=== PATIENT | female | born 1935 | race Caucasian/White ===

== ENCOUNTER 2016-12-19 11:56 | Inpatient (IN) | payer MEDICARE ==
--- NOTE | 2016-12-19 13:25 | CR ---
Chest 1V Frontal HISTORY: Shortness of breath. COMPARISON: Chest x-ray 07/13/2006 FINDINGS: Right-sided pacemaker. Moderate cardiomegaly. Prior median sternotomy. Borderline congesti ve change. Lordotic projection. No dense infiltrate. Impression: [place] 1. Cardiomegaly and borderline congestive change. No dense focal infiltrate.
--- NOTE | 2016-12-19 13:27 | EDM.PDOC ---
ED HPI GENERAL MEDICAL PROBLEM - General Chief Complaint: Abdominal Pain Stated Complaint: SHORTNESS OF BREATH,STOMACH PAIN Time Seen by Provider: 12/19/16 12:30 Source of Information: Reports: Patient, Family History Limitations: Reports: No Limitations - History of Present Illness Onset: Gradual Duration: Day(s): Location: Reports: Chest, Abdomen Associated Symptoms: Reports: Shortness of Breath - Related Data Allergies Allergy/AdvReac Type Severity Reaction Status Date / Time vancomycin Allergy Rash Verified 06/28/14 16:36 Home Meds: Home Meds Acetaminophen 650 mg PO Q6H PRN 06/28/14 [History] Aspirin [Halfprin] 81 mg PO DAILY 06/28/14 [History] Bumetanide [Bumex] 1 mg PO DAILY 06/28/14 [History] Calcium Carbonate/Vitamin D3 [Calcium Carbonate/Vitamin D 1250 MG-200 Unit] 1 tab PO BID 06/28/14 [History] Carvedilol [Coreg] 25 mg PO BID 06/28/14 [History] Lisinopril 5 mg PO DAILY 06/28/14 [History] Magnesium Oxide 400 mg PO DAILY 06/28/14 [History] Nitroglycerin [Nitrostat] 0.4 mg SL ASDIRECTED PRN 06/28/14 [History] Omeprazole [Prilosec] 20 mg PO DAILY 06/28/14 [History] Spironolactone [Aldactone] 25 mg PO DAILY 06/28/14 [History] Warfarin [Coumadin] 3 mg PO WE 06/28/14 [History] Warfarin [Coumadin] 4 mg PO MOTUTHFR 06/28/14 [History] atorvaSTATin [Lipitor] 80 mg PO BEDTIME 06/28/14 [History] Past Medical History Cardiovascular History: Reports: Heart Failure Respiratory History: Reports: SOB, Other (See Below) Other Respiratory History: pt does not know why wearing oxygen. wears at home for last 3 years Genitourinary History: Reports: Urinary Incontinence [employer] History: Reports: Musculoskeletal History: Reports: Arthritis Endocrine/Metabolic History: Reports: Diabetes, Type II - Infectious Disease History Infectious Disease History: Reports: Chicken Pox, Measles, Mumps - Past Surgical History Cardiovascular Surgical History: Reports: Carotid Stents, Valve Replacement Social & Family History - Family History Family Medical History: Noncontributory Cardiac: Reports: CAD, Heart Failure Respiratory: Reports: COPD Endocrine/Metabolic: Reports: Diabetes, type II - Tobacco Use Smoking Status *Q: Former Smoker Years of Tobacco use: 30 Used Tobacco, but Quit: No Month Tobacco Last Used: 1997 Second Hand Smoke Exposure: No - Caffeine Use Caffeine Use: Reports: Tea - Alcohol Use Days Per Week of Alcohol Use: 2 Number of Drinks Per Day: 3 Total Drinks Per Week: 6 - Recreational Drug Use Recreational Drug Use: No ED ROS GENERAL - Review of Systems Review Of Systems: See Below Constitutional: Reports: No Symptoms HEENT: Reports: No Symptoms Respiratory: Reports: Shortness of Breath, Wheezing Cardiovascular: Reports: Dyspnea on Exertion, Orthopnea Endocrine: Reports: No Symptoms GI/Abdominal: Reports: Abdominal Pain, Distension : Reports: No Symptoms Musculoskeletal: Reports: No Symptoms Skin: Reports: No Symptoms Neurological: Reports: No Symptoms ED EXAM, GI/ABD - Physical Exam Exam: See Below Text/Narrative:: pt arrived with sob and leg swelling. Her abdoman is very distended. Exam Limited By: No Limitations General Appearance: Alert, Moderate Distress Ears: Normal TMs Nose: Normal Inspection Throat/Mouth: Normal Inspection Head: Atraumatic Neck: Other (neck veins distended. ) Respiratory/Chest: Decreased Breath Sounds, Rales Cardiovascular: Irregularly Irregular GI/Abdominal Exam: Distended, Other ( abdoman is very tight. ) (Female) Exam: Deferred Rectal (Female) Exam: Deferred Back Exam: Normal Inspection Extremities: Pedal Edema, Other ( plus 3) Neurological: Alert, Oriented, Normal Cognition Psychiatric: Normal Affect Course - Vital Signs Last Recorded V/S: Last Vital Signs Temp 35.5 C 12/19/16 12:42 Pulse 79 12/19/16 12:42 Resp 18 12/19/16 12:42 BP 107/71 12/19/16 12:42 Pulse Ox 88 L 12/19/16 12:42 - Orders/Labs/Meds Orders: Active Orders 24 hr Category Date Time Status EKG Documentation Completion [RC] ASDIRECTED Care 12/19/16 12:40 Active UA W/MICROSCOPIC [URIN] Urgent Lab 12/19/16 12:40 Uncollected EKG 12 Lead [EK] Routine Ther 12/19/16 12:40 Ordered Labs: Laboratory Tests 07/21/17 07/21/17 07/21/17 Range/Units 12:40 12:40 12:40 WBC 4.7 (4.5-11.0) K/uL RBC 4.17 (3.30-5.50) M/uL Hgb 10.0 L (12.0-15.0) g/dL Hct 32.2 L (36.0-48.0) % MCV 77 L (80-98) fL MCH 24 L (27-31) pg MCHC 31 L (32-36) % Plt Count 97 L (150-400) K/uL Neut % (Auto) 74 H (36-66) % Lymph % (Auto) 10 L (24-44) % [place] % (Auto) 15 H (2-6) % Eos % (Auto) 0 L (2-4) % Baso % (Auto) 0 (0-1) % PT 50.8 H (9.5-12.0) sec INR 4.46 H* D (0.80-1.20) Puncture Site ABG pH (7.350-7.450) ABG pCO2 (35.0-42.0) mmHg ABG pO2 (75.0-100.0) mmHg ABG HCO3 (22.0-26.0) mmol/L ABG Total CO2 (21.0-25.0) mmol/L ABG O2 Saturation (95.0-98.0) % ABG O2 Content (15.0-23.0) %vol ABG Base Excess mm/L ABG Hemoglobin (12.0-16.0) g/dL ABG Oxyhemoglobin % ABG Carboxyhemoglobin (0.0-1.6) % ABG Methemoglobin % Alexis Test O2 Delivery Device Oxygen Flow Rate L Sodium 133 L (140-148) mmol/L Potassium 4.3 (3.6-5.2) mmol/L Chloride 96 L (100-108) mmol/L Carbon Dioxide 28 (21-32) mmol/L Anion Gap 13.3 (5.0-14.0) mmol/L BUN 55 H D (7-18) mg/dL Creatinine 3.8 H* D (0.6-1.0) mg/dL Est Cr Clr Drug Dosing 9.49 mL/min Estimated GFR (MDRD) 11 L (>60) Glucose 80 (74-106) mg/dL Calcium 8.2 L (8.5-10.1) mg/dL Total Bilirubin 1.7 H (0.2-1.0) mg/dL AST 23 (15-37) U/L ALT 14 (12-78) U/L Alkaline Phosphatase 92 (46-116) U/L C-Reactive Protein (0.0-0.3) mg/dL Fsw-M-Crfaldgabjf Pept 95466 H (5-450) pg/mL Total Protein 6.9 (6.4-8.2) g/dL Albumin 3.0 L (3.4-5.0) g/dL Globulin 3.9 H (2.3-3.5) g/dL Albumin/Globulin Ratio 0.8 L (1.2-2.2) 12/19/16 12/19/16 Range/Units 14:10 14:26 WBC (4.5-11.0) K/uL RBC (3.30-5.50) M/uL Hgb (12.0-15.0) g/dL Hct (36.0-48.0) % MCV (80-98) fL MCH (27-31) pg MCHC (32-36) % Plt Count (150-400) K/uL Neut % (Auto) (36-66) % Lymph % (Auto) (24-44) % [place] % (Auto) (2-6) % Eos % (Auto) (2-4) % Baso % (Auto) (0-1) % PT (9.5-12.0) sec INR (0.80-1.20) Puncture Site Rt.brachial ABG pH 7.418 (7.350-7.450) ABG pCO2 35.5 (35.0-42.0) mmHg ABG pO2 102.0 H (75.0-100.0) mmHg ABG HCO3 22.5 (22.0-26.0) mmol/L ABG Total CO2 20.9 L (21.0-25.0) mmol/L ABG O2 Saturation 97.6 (95.0-98.0) % ABG O2 Content 13.6 L (15.0-23.0) %vol ABG Base Excess -1.1 mm/L ABG Hemoglobin 10.0 L (12.0-16.0) g/dL ABG Oxyhemoglobin 95.8 % ABG Carboxyhemoglobin 1.3 (0.0-1.6) % ABG Methemoglobin 0.5 % Alexis Test TNP O2 Delivery Device Room air Oxygen Flow Rate 2 L Sodium (140-148) mmol/L Potassium (3.6-5.2) mmol/L Chloride (100-108) mmol/L Carbon Dioxide (21-32) mmol/L Anion Gap (5.0-14.0) mmol/L BUN (7-18) mg/dL Creatinine (0.6-1.0) mg/dL Est Cr Clr Drug Dosing mL/min Estimated GFR (MDRD) (>60) Glucose (74-106) mg/dL Calcium (8.5-10.1) mg/dL Total Bilirubin (0.2-1.0) mg/dL AST (15-37) U/L ALT (12-78) U/L Alkaline Phosphatase (46-116) U/L C-Reactive Protein 0.17 (0.0-0.3) mg/dL Jox-L-Dgntgkpfiyu Pept (5-450) pg/mL Total Protein (6.4-8.2) g/dL Albumin (3.4-5.0) g/dL Globulin (2.3-3.5) g/dL Albumin/Globulin Ratio (1.2-2.2) - Re-Assessments/Exams Free Text/Narrative Re-Assessment/Exam: 12/19/16 15:09 chest xray shows cardiomegly , chf, Her bnp is high. Her cretnine is 3.8. A cat scn of the abdoman shows acetes and third spacing. Departure - Departure Time of Disposition: 15:10 Disposition: Admitted As Inpatient 68 Condition: Fair Clinical Impression: CHF (congestive heart failure), Ascites, Renal insufficiency - Discharge Information Forms: ED Department Discharge Care Plan Goals: admit to Dr penn - My Orders Last 24 Hours: My Active Orders 12/19/16 12:40 EKG Documentation Completion [RC] ASDIRECTED UA W/MICROSCOPIC [URIN] Urgent EKG 12 Lead [EK] Routine - Assessment/Plan Last 24 Hours: My Active Orders 12/19/16 12:40 EKG Documentation Completion [RC] ASDIRECTED UA W/MICROSCOPIC [URIN] Urgent EKG 12 Lead [EK] Routine
--- NOTE | 2016-12-19 14:40 | CT ---
Abdomen Pelvis wo Cont HISTORY: Distended abdomen. Dose: Total DLP 799. COMPARISON: None FINDINGS: Moderate amount of ascites in the abdomen and pelvis. Moderate amount of subcutaneous severo a. Moderate enlarged heart. Prior cholecystectomy. The liver, spleen, pancreas, adrenal glands and abdominal aorta appear normal. Mild atrophy of the k idneys no hydronephrosis. There is some vascular calcifications in both kidneys. The remainder of the pelvis is unremarkable. Impression: 1. Moderate amount of ascites and subcutaneous edema. In correlation with enlarged heart this may be on the basis of heart failure. As well the inferior vena cava is slightly distended suggesting righ t heart failure.
--- NOTE | 2016-12-19 15:19 | PCM.HP ---
H&P History of Present Illness - General Date of Service: 12/19/16 Admit Problem/Dx: Admission Diagnosis/Problem Admission Diagnosis/Problem CHF, Congestive heart failure Source of Information: Patient, Family, Provider History Limitations: Reports: No Limitations - History of Present Illness Initial Comments - Free Text/Narative: Gail presented to the emergency room at the [facility] in [place]. She presented there with one week of progressive shortness of breath, lower extremity edema as well as increasing abdominal distention. She has been more short of breath with activity than usual but has not had any orthopnea. No difficulties with chest pain. She does report some mild intermittent crampy abdominal pain that comes and goes. This has not been consistent. No obvious trigger. The pain goes away without any sort of intervention. She has had loose stools for the past few days but they're better today after a dose of Imodium last night. No recent antibiotics. She has not been keeping track of her weight for some time. She has been watching her salt but not watching her diet particularly. No recent illnesses or obvious cause for her worsening of symptoms over the past week. Workup in the emergency room revealed evidence for congestive heart failure including small bilateral effusions, clinical examination consistent with this, BNP of nearly 16,000. She also has acute on chronic renal failure with a creatinine of 3.8. She will be admitted for management of acute systolic congestive heart failure. - Related Data Allergies/Adverse Reactions: Allergies Allergy/AdvReac Type Severity Reaction Status Date / Time vancomycin Allergy Rash Verified 06/28/14 16:36 Home Medications: Home Meds Acetaminophen 650 mg PO Q6H PRN 06/28/14 [History] Aspirin [Halfprin] 81 mg PO DAILY 06/28/14 [History] Bumetanide [Bumex] 1 mg PO DAILY 06/28/14 [History] Calcium Carbonate/Vitamin D3 [Calcium Carbonate/Vitamin D 1250 MG-200 Unit] 1 tab PO BID 06/28/14 [History] Carvedilol [Coreg] 25 mg PO BID 06/28/14 [History] Lisinopril 5 mg PO DAILY 06/28/14 [History] Magnesium Oxide 400 mg PO DAILY 06/28/14 [History] Nitroglycerin [Nitrostat] 0.4 mg SL ASDIRECTED PRN 06/28/14 [History] Omeprazole [Prilosec] 20 mg PO DAILY 06/28/14 [History] Spironolactone [Aldactone] 25 mg PO DAILY 06/28/14 [History] Warfarin [Coumadin] 2 mg PO MOTUTHFR 06/28/14 [History] Warfarin [Coumadin] 3 mg PO ASDIRECTED 06/28/14 [History] atorvaSTATin [Lipitor] 80 mg PO BEDTIME 06/28/14 [History] Past Medical History Cardiovascular History: Reports: Heart Failure Respiratory History: Reports: SOB, Other (See Below) Other Respiratory History: pt does not know why wearing oxygen. 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: Musculoskeletal History: Reports: Arthritis Endocrine/Metabolic History: Reports: Diabetes, Type II - Infectious Disease History Infectious Disease History: Reports: Chicken Pox, Measles, Mumps - Past Surgical History Cardiovascular Surgical History: Reports: Carotid Stents, Valve Replacement Social & Family History - Family History Family Medical History: Noncontributory Cardiac: Reports: CAD, Heart Failure Respiratory: Reports: COPD Endocrine/Metabolic: Reports: Diabetes, type II - Tobacco Use Smoking Status *Q: Former Smoker Years of Tobacco use: 30 Used Tobacco, but Quit: No Month Tobacco Last Used: 1997 Second Hand Smoke Exposure: No - Caffeine Use Caffeine Use: Reports: Tea - Alcohol Use Days Per Week of Alcohol Use: 2 Number of Drinks Per Day: 3 Total Drinks Per Week: 6 - Recreational Drug Use Recreational Drug Use: No H&P Review of Systems - Review of Systems: Review Of Systems: See Below Free Text/Narrative: A complete 12 point review of systems was obtained. Pertinent positives and negatives are noted in the history of present illness. All other systems were reviewed and were negative except as noted. Exam - Exam Exam: See Below - Vital Signs Vital Signs: Last Vital Signs Temp 35.5 C 12/19/16 12:42 Pulse 79 12/19/16 12:42 Resp 18 12/19/16 12:42 BP 107/71 12/19/16 12:42 Pulse Ox 88 L 12/19/16 12:42 Weight: 74.843 kg - Exam Quality Assessment: Supplemental Oxygen General: Alert, Oriented, Cooperative. No: Mild Distress HEENT: Conjunctiva Clear, Normal Nasal Septum. No: Mucosa Moist & [place] (dry), Scleral Icterus Neck: Supple, Trachea Midline, JVD (To the angle of the jaw at 60). No: Lymphadenopathy, Thyromegaly Lungs: Normal Respiratory Effort, Decreased Breath Sounds (Left lung base), Rales (A few right lung base). No: Wheezing Cardiovascular: Regular Rate, Irregular Rhythm, Systolic Murmur (Throughout, best at left lower sternal border and apex). No: Diastolic Murmur GI/Abdominal Exam: Normal Bowel Sounds, Soft, Distended, Tender (Mild diffuse tenderness) Extremities: Other (Pitting edema of the lower extremities to the knee and dependent areas of the lower extremities all the way to the waist). No: Increased Warmth, Mottled Peripheral Pulses: 2+: Dorsalis Pedis (L), Dorsalis Pedis (R) Skin: Warm, Dry, Intact Neuro Extensive - Mental Status: Alert, Oriented x3, Nl Response to Commands Neuro Extensive - Motor, Sensory, Reflexes: CN II-XII Intact. No: Dysarthria, Abnormal Motor, Tremor Psychiatric: Alert, Normal Affect - Patient Data Lab Results Last 24 hrs: Laboratory Results - last 24 hr 12/19/16 12/19/16 12/19/16 Range/Units 12:40 12:40 12:40 WBC 4.7 (4.5-11.0) K/uL RBC 4.17 (3.30-5.50) M/uL Hgb 10.0 L (12.0-15.0) g/dL Hct 32.2 L (36.0-48.0) % MCV 77 L (80-98) fL MCH 24 L (27-31) pg MCHC 31 L (32-36) % Plt Count 97 L (150-400) K/uL Neut % (Auto) 74 H (36-66) % Lymph % (Auto) 10 L (24-44) % [place] % (Auto) 15 H (2-6) % Eos % (Auto) 0 L (2-4) % Baso % (Auto) 0 (0-1) % PT 50.8 H (9.5-12.0) sec INR 4.46 H* D (0.80-1.20) Puncture Site ABG pH (7.350-7.450) ABG pCO2 (35.0-42.0) mmHg ABG pO2 (75.0-100.0) mmHg ABG HCO3 (22.0-26.0) mmol/L ABG Total CO2 (21.0-25.0) mmol/L ABG O2 Saturation (95.0-98.0) % ABG O2 Content (15.0-23.0) %vol ABG Base Excess mm/L ABG Hemoglobin (12.0-16.0) g/dL ABG Oxyhemoglobin % ABG Carboxyhemoglobin (0.0-1.6) % ABG Methemoglobin % Alexis Test O2 Delivery Device Oxygen Flow Rate L Sodium 133 L (140-148) mmol/L Potassium 4.3 (3.6-5.2) mmol/L Chloride 96 L (100-108) mmol/L Carbon Dioxide 28 (21-32) mmol/L Anion Gap 13.3 (5.0-14.0) mmol/L BUN 55 H D (7-18) mg/dL Creatinine 3.8 H* D (0.6-1.0) mg/dL Est Cr Clr Drug Dosing 9.49 mL/min Estimated GFR (MDRD) 11 L (>60) Glucose 80 (74-106) mg/dL Calcium 8.2 L (8.5-10.1) mg/dL Total Bilirubin 1.7 H (0.2-1.0) mg/dL AST 23 (15-37) U/L ALT 14 (12-78) U/L Alkaline Phosphatase 92 (46-116) U/L C-Reactive Protein (0.0-0.3) mg/dL Hrc-M-Dtaxwfifuzw Pept 70873 H (5-450) pg/mL Total Protein 6.9 (6.4-8.2) g/dL Albumin 3.0 L (3.4-5.0) g/dL Globulin 3.9 H (2.3-3.5) g/dL Albumin/Globulin Ratio 0.8 L (1.2-2.2) 12/19/16 12/19/16 Range/Units 14:10 14:26 WBC (4.5-11.0) K/uL RBC (3.30-5.50) M/uL Hgb (12.0-15.0) g/dL Hct (36.0-48.0) % MCV (80-98) fL MCH (27-31) pg MCHC (32-36) % Plt Count (150-400) K/uL Neut % (Auto) (36-66) % Lymph % (Auto) (24-44) % [place] % (Auto) (2-6) % Eos % (Auto) (2-4) % Baso % (Auto) (0-1) % PT (9.5-12.0) sec INR (0.80-1.20) Puncture Site Rt.brachial ABG pH 7.418 (7.350-7.450) ABG pCO2 35.5 (35.0-42.0) mmHg ABG pO2 102.0 H (75.0-100.0) mmHg ABG HCO3 22.5 (22.0-26.0) mmol/L ABG Total CO2 20.9 L (21.0-25.0) mmol/L ABG O2 Saturation 97.6 (95.0-98.0) % ABG O2 Content 13.6 L (15.0-23.0) %vol ABG Base Excess -1.1 mm/L ABG Hemoglobin 10.0 L (12.0-16.0) g/dL ABG Oxyhemoglobin 95.8 % ABG Carboxyhemoglobin 1.3 (0.0-1.6) % ABG Methemoglobin 0.5 % Alexis Test TNP O2 Delivery Device Room air Oxygen Flow Rate 2 L Sodium (140-148) mmol/L Potassium (3.6-5.2) mmol/L Chloride (100-108) mmol/L Carbon Dioxide (21-32) mmol/L Anion Gap (5.0-14.0) mmol/L BUN (7-18) mg/dL Creatinine (0.6-1.0) mg/dL Est Cr Clr Drug Dosing mL/min Estimated GFR (MDRD) (>60) Glucose (74-106) mg/dL Calcium (8.5-10.1) mg/dL Total Bilirubin (0.2-1.0) mg/dL AST (15-37) U/L ALT (12-78) U/L Alkaline Phosphatase (46-116) U/L C-Reactive Protein 0.17 (0.0-0.3) mg/dL Hkw-R-Ebepdcgxhpt Pept (5-450) pg/mL Total Protein (6.4-8.2) g/dL Albumin (3.4-5.0) g/dL Globulin (2.3-3.5) g/dL Albumin/Globulin Ratio (1.2-2.2) Result Diagrams: 12/19/16 12:40 12/19/16 12:40 Imaging Impressions Last 24 hrs: Chest x-ray - images personally reviewed - there is significant cardiomegaly and small bilateral pleural effusions, left slightly greater than right. There is mild cephalization of the vasculature. No definite mass or infiltrate identified. She does have a single chamber pacemaker in place. CT scan of the abdomen and pelvis - there is moderate free fluid/ascites in the abdomen as well as anasarca. No acute pathology. EKG INTERPRETATION EKG Date: 12/19/16 Rhythm: A-Fib Rate (Beats/Min): 74 [place]: RAD-Right [place] Deviation P-Wave: Variable QRS: Normal ST-T: Normal EKG Interpretation Comments: Nonspecific T-wave flattening throughout *Q Meaningful Use (ADM) - VTE *Q VTE Criteria *Q: VTE Pharmacological Contraindications *Q: High INR Value - VTE Risk Assess *Q Each Risk Factor Represents 1 Point: Swollen Legs, Current, Obesity (BMI greater than 30), Congestive Heart Failure, Less than 1 Month Total Score 1 Point Risk Factors: 3 Each Risk Factor Represents 2 Points: None Total Score 2 Point Risk Factors: 0 Each Risk Factor Represents 3 Points: Age 75 Years or Greater Total Score 3 Point Risk Factors: 3 Each Risk Factor Represents 5 Points: None Total Score 5 Point Risk Factors: 0 Venous Thromboembolism Risk Factor Score *Q: 6 - Stroke *Q Stroke Criteria *Q: - AMI *Q AMI Criteria *Q: - Problem List (1) Acute systolic CHF (congestive heart failure), NYHA class 3 SNOMED Code(s): 128852587, 284729134, 896741153 ICD Code: I50.21 - ACUTE SYSTOLIC (CONGESTIVE) HEART FAILURE Status: Acute Current Visit: Yes (2) Acute on chronic renal failure SNOMED Code(s): 756877237 ICD Code: N17.9 - ACUTE KIDNEY FAILURE, UNSPECIFIED; N18.9 - CHRONIC KIDNEY DISEASE, UNSPECIFIED Status: Acute Current Visit: Yes Qualifiers: Acute renal failure type: unspecified Chronic kidney disease stage: stage 4 (severe) Qualified Code(s): N17.9 - Acute kidney failure, unspecified; N18.4 - Chronic kidney disease, stage 4 (severe) (3) Anemia due to chronic kidney disease SNOMED Code(s): 944011075 ICD Code: N18.9 - CHRONIC KIDNEY DISEASE, UNSPECIFIED; D63.1 - ANEMIA IN CHRONIC KIDNEY DISEASE Status: Chronic Current Visit: Yes Problem List Initiated/Reviewed/Updated: Yes Orders Last 24hrs: Active Orders 24 hr Category Date Time Status Patient Status Manage Transfer [TRANSFER] Routine ADT 12/19/16 15:10 Ordered EKG Documentation Completion [RC] ASDIRECTED Care 12/19/16 12:40 Active Insert Harper Catheter [Insert Urinary Catheter] [OM.PC] Care 12/19/16 15:15 Ordered Q24H Urinary Catheter Assessment [RC] ASDIRECTED Care 12/19/16 15:09 Active UA W/MICROSCOPIC [URIN] Urgent Lab 12/19/16 12:40 Uncollected Bumetanide [Bumex] Med 12/19/16 15:20 Once 2 mg IVPUSH ONETIME ONE Resuscitation Status Routine Resus Stat 12/19/16 15:12 Ordered EKG 12 Lead [EK] Routine Ther 12/19/16 12:40 Ordered Medication Orders Bumetanide (Bumex) 2 mg IVPUSH ONETIME ONE Stop: 12/19/16 15:21 Assessment/Plan Comment:: Assessment and plan - Acute systolic congestive heart failure, NYHA class III - likely subacute on chronic. She has a known reduction in her ejection fraction with most recent measurement 25-30%. She also has severe tricuspid regurgitation, moderate regurgitation around her mechanical aortic valve and moderate mitral regurgitation. Patient has not been monitoring weight. No obvious trigger for exacerbation. Weight is up about 25 pounds from her dry weight. Has had recent diarrhea and abdominal distention that is probably related to edema of the intestines. Not safe for outpatient management with symptoms rising after even minimal activity, acute on chronic kidney disease and the significant weight gain. There is no evidence for acute coronary syndrome at this time. BNP is significantly elevated. -Insert Harper catheter for strict intake and output monitoring -Bumetanide 2 mg every 8 hours -Cardiac monitoring -Continue beta jim, AMARJIT inhibitor -Supplemental oxygen -Repeat echocardiogram when available -Strict intake and output monitoring Acute on chronic kidney injury - creatinine up to 3.8 with a baseline of 2.5. Suspect congestive heart failure as the contribute factor to the worsening of the kidney function and I would anticipate that with diuresis the kidney function should get better. She does continue to make urine. -Diuresis as above -Labs in the morning Chronic atrial fibrillation - acceptable rate control at this time. She is chronically anticoagulated and INR slightly supratherapeutic. -Continue beta jim -Hold warfarin -INR goal is 2.5-3.5 with a mechanical aortic valve Anemia of chronic disease - Hemoglobin is safe level at this time. No indication for transfusion. Plan to monitor labs daily. Maintenance issues - - DVT prophylaxis - warfarin - GI prophylaxis - PPI - Nutrition - low sodium diet - Harper catheter - placed for strict intake and output monitoring, will be reassessed daily CODE STATUS - patient wishes to be full code Admission justification - This patient will be admitted for inpatient services and is medically appropriate meeting medical necessity for inpatient admission as outlined in my documentation. I reasonably expect the patient will require inpatient services that span a period time over 2 midnights. I reasonably expect this patient to be discharged or transferred within 96 hours [facility]. Disposition - anticipate discharge home after the hospital stay Primary care physician - Dr Cherelle Jameson M.D.
[2016-12-19] MEDS ORDERED: Bumetanide 1 MG/4 ML MDV IVPUSH ONE (15:20)
[2016-12-19] MEDS ORDERED: Acetaminophen/HYDROcodone 325-5 MG Tab PO PRN (17:09)
[2016-12-19] MEDS ORDERED: Ondansetron 4 MG Tab.DIS PO PRN (17:09)
[2016-12-19] MEDS ORDERED: Bumetanide 1 MG/4 ML MDV ONE (18:30)
[2016-12-19] MEDS: Carvedilol 25 MG Tab PO SCH (20:37)
[2016-12-19] MEDS: atorvaSTATin 20 MG Tab PO SCH (20:40)
[2016-12-19] MEDS ORDERED: Lisinopril 5 MG Tab PO SCH (21:00)
[2016-12-20] MEDS: Acetaminophen 325 MG Tab PO PRN ×2 (00:07→23:24)
[2016-12-20] MEDS ORDERED: Bumetanide 2.5 MG/10 ML MDV IVPUSH SCH (02:00)
[2016-12-20] MEDS ORDERED: Bumetanide 2.5 MG/10 ML MDV IVPUSH STA (03:37)
[2016-12-20] MEDS: Bumetanide 2.5 MG/10 ML MDV IVPUSH SCH ×2 (03:47→11:33)
[2016-12-20] MEDS ORDERED: Phytonadione ORAL 5mg/5ml Soln Simple Syrup U/D PO ONE (06:17)
[2016-12-20] MEDS: Pantoprazole 40 MG Tab.CR PO SCH (06:42)
[2016-12-20] MEDS: Magnesium Oxide 400 MG Tab PO SCH (09:20)
[2016-12-20] MEDS: Spironolactone 25 MG Tab PO SCH (09:20)
[2016-12-20] MEDS: Aspirin 81 MG Tab.EC PO SCH (09:20)
--- NOTE | 2016-12-20 10:52 | PCM.PN ---
- General Info Date of Service: 12/20/16 Functional Status: Reports: Pain Controlled, Tolerating Diet - Review of Systems General: Reports: Weakness Pulmonary: Reports: Shortness of Breath Systems Review Comment:: No acute events overnight but patient has not responded well to attempts at diuresis with IV push bumetanide. Blood pressures have remained on the low side and her carvedilol and lisinopril have been held. Clinically she feels better today and feels less short of breath. She does not report orthopnea. She has not had any fevers. Abdominal distention seems a little bit better today. - Patient Data Vitals - most recent: Last Vital Signs Temp 35.6 C 12/20/16 07:14 Pulse 78 12/20/16 07:14 Resp 16 12/20/16 07:14 BP 93/61 12/20/16 07:14 Pulse Ox 95 12/20/16 07:14 Weight - most recent: 78.562 kg I&O - last 24 hours: Intake & Output 12/19/16 12/20/16 12/20/16 22:59 06:59 14:59 Intake Total 300 Output Total 90 141 Balance -90 159 Lab Results last 24 hrs: Laboratory Results - last 24 hr 12/19/16 12/20/16 12/20/16 Range/Units 19:37 05:43 05:43 WBC 5.3 (4.5-11.0) K/uL RBC 3.78 (3.30-5.50) M/uL Hgb 8.9 L (12.0-15.0) g/dL Hct 29.0 L (36.0-48.0) % MCV 77 L (80-98) fL MCH 24 L (27-31) pg MCHC 31 L (32-36) % Plt Count 92 L (150-400) K/uL PT 71.3 H (9.5-12.0) sec INR 6.18 H* (0.80-1.20) Sodium (140-148) mmol/L Potassium (3.6-5.2) mmol/L Chloride (100-108) mmol/L Carbon Dioxide (21-32) mmol/L Anion Gap (5.0-14.0) mmol/L BUN (7-18) mg/dL Creatinine (0.6-1.0) mg/dL Est Cr Clr Drug Dosing mL/min Estimated GFR (MDRD) (>60) Glucose (74-106) mg/dL Calcium (8.5-10.1) mg/dL Magnesium (1.8-2.4) mg/dL Urine Color Yellow Urine Appearance Cloudy Urine pH 5.0 (4.5-8.0) Ur Specific [place] 1.015 (1.008-1.030) Urine Protein Negative (NEGATIVE) mg/dL Urine Glucose (UA) Normal (NEGATIVE) mg/dL Urine Ketones Negative (NEGATIVE) mg/dL Urine Occult Blood Negative (NEGATIVE) Urine Nitrite Negative (NEGATIVE) Urine Bilirubin Small (NEGATIVE) Urine Urobilinogen Normal (NORMAL) mg/dL Ur Leukocyte Esterase Negative (NEGATIVE) Urine RBC 0-5 (0-5) Urine WBC 5-10 H (0-5) Ur Epithelial Cells Moderate Amorphous Sediment Numerous Urine Bacteria Many Urine Mucus Few 12/20/16 Range/Units 05:43 WBC (4.5-11.0) K/uL RBC (3.30-5.50) M/uL Hgb (12.0-15.0) g/dL Hct (36.0-48.0) % MCV (80-98) fL MCH (27-31) pg MCHC (32-36) % Plt Count (150-400) K/uL PT (9.5-12.0) sec INR (0.80-1.20) Sodium 132 L (140-148) mmol/L Potassium 4.6 (3.6-5.2) mmol/L Chloride 98 L (100-108) mmol/L Carbon Dioxide 26 (21-32) mmol/L Anion Gap 12.6 (5.0-14.0) mmol/L BUN 58 H (7-18) mg/dL Creatinine 4.0 H* (0.6-1.0) mg/dL Est Cr Clr Drug Dosing 9.02 mL/min Estimated GFR (MDRD) 11 L (>60) Glucose 84 (74-106) mg/dL Calcium 8.1 L (8.5-10.1) mg/dL Magnesium 2.1 (1.8-2.4) mg/dL Urine Color Urine Appearance Urine pH (4.5-8.0) Ur Specific [place] (1.008-1.030) Urine Protein (NEGATIVE) mg/dL Urine Glucose (UA) (NEGATIVE) mg/dL Urine Ketones (NEGATIVE) mg/dL Urine Occult Blood (NEGATIVE) Urine Nitrite (NEGATIVE) Urine Bilirubin (NEGATIVE) Urine Urobilinogen (NORMAL) mg/dL Ur Leukocyte Esterase (NEGATIVE) Urine RBC (0-5) Urine WBC (0-5) Ur Epithelial Cells Amorphous Sediment Urine Bacteria Urine Mucus Med Orders - Current: Current Medications Acetaminophen (Tylenol) 650 mg PO Q6H PRN PRN Reason: Pain/Fever Last Admin: 12/20/16 00:07 Dose: 650 mg Hydrocodone Bitart/Acetaminophen ([place] 325-5 Mg) 1 tab PO Q4H PRN PRN Reason: Pain (moderate 4-6) Aspirin (Halfprin) 81 mg PO DAILY [facility] Last Admin: 12/20/16 09:20 Dose: 81 mg Atorvastatin Calcium (Lipitor) 80 mg PO BEDTIME [facility] Last Admin: 12/19/16 20:40 Dose: 80 mg Bumetanide (Bumex) 2 mg IVPUSH Q8H [facility] Last Admin: 12/20/16 03:47 Dose: Not Given Carvedilol (Coreg) 25 mg PO BID [facility] Last Admin: 12/19/16 20:37 Dose: Not Given Lisinopril (Prinivil) 5 mg PO DAILY@2100 [facility] Last Admin: 12/19/16 21:42 Dose: Not Given Magnesium Oxide (Magnesium Oxide) 400 mg PO DAILY [facility] Last Admin: 12/20/16 09:20 Dose: 400 mg Ondansetron HCl (Zofran Odt) 4 mg PO Q6H PRN PRN Reason: Nausea able to take PO Pantoprazole Sodium (Protonix) 40 mg PO ACBREAKFAST [facility] Last Admin: 12/20/16 06:42 Dose: 40 mg Senna/Docusate Sodium (Senna Plus) 1 tab PO BID PRN PRN Reason: Constipation Spironolactone (Aldactone) 25 mg PO DAILY [facility] Last Admin: 12/20/16 09:20 Dose: 25 mg Discontinued Medications Bumetanide (Bumex) 2 mg IVPUSH ONETIME ONE Stop: 12/19/16 15:21 Last Admin: 12/19/16 18:32 Dose: 2 mg Bumetanide (Bumex) 2 mg IVPUSH Q8H [facility] Bumetanide (Bumex) Confirm Administered Dose 2 mg .ROUTE .STK-MED ONE Stop: 12/19/16 18:31 Last Admin: 12/19/16 18:40 Dose: Not Given Bumetanide (Bumex) 4 mg IVPUSH ONETIME STA Stop: 12/20/16 03:38 Last Admin: 12/20/16 03:56 Dose: 4 mg Phytonadione (Aquamephyton) 2.5 mg PO ONETIME ONE Stop: 12/20/16 06:18 Last Admin: 12/20/16 06:42 Dose: 2.5 mg - Exam Quality Assessment: supplemental oxygen, urine catheter General: alert, oriented, cooperative, no acute distress Neck: supple Lungs: Clear to Auscultation, Normal Respiratory Effort, Decreased Breath Sounds (mild left lung base) Cardiovascular: Regular Rate, Irregular Rhythm, Murmurs GI/Abdominal Exam: Soft, Distended. No: Tender Extremities: Other (pitting edema from the feet to the posterior thighs ). No: Increased Warmth Skin: warm, dry Psy/Mental Status: alert, normal affect - Problem List & Annotations (1) Acute systolic CHF (congestive heart failure), NYHA class 3 SNOMED Code(s): 964666933, 726801752, 223555365 Code(s): I50.21 - ACUTE SYSTOLIC (CONGESTIVE) HEART FAILURE Status: Acute Current Visit: Yes (2) Acute on chronic renal failure SNOMED Code(s): 453938188 Code(s): N17.9 - ACUTE KIDNEY FAILURE, UNSPECIFIED; N18.9 - CHRONIC KIDNEY DISEASE, UNSPECIFIED Status: Acute Current Visit: Yes Qualifiers: Acute renal failure type: unspecified Chronic kidney disease stage: stage 4 (severe) Qualified Code(s): N17.9 - Acute kidney failure, unspecified; N18.4 - Chronic kidney disease, stage 4 (severe) (3) Anemia due to chronic kidney disease SNOMED Code(s): 609925687 Code(s): N18.9 - CHRONIC KIDNEY DISEASE, UNSPECIFIED; D63.1 - ANEMIA IN CHRONIC KIDNEY DISEASE Status: Chronic Current Visit: Yes - Problem List Review Problem List Initiated/Reviewed/Updated: Yes - My Orders Last 24 Hours: My Active Orders 12/19/16 15:12 Resuscitation Status Routine 12/19/16 17:09 Patient Status [ADT] Routine Bedrest Bedside Commode [RC] ASDIRECTED Cardiac Education [RC] Click to Edit Cardiac Monitoring [RC] CONTINUOUS Height and Weight [RC] 0500 Intake and Output [RC] QSHIFT Notify Provider Vital Signs [RC] ASDIRECTED Oxygen Therapy [RC] PRN VTE/DVT Education [RC] Per Unit Routine Vital Signs [RC] Q4H Acetaminophen/HYDROcodone [[place] 325-5 MG] 1 tab PO Q4H PRN Docusate Sodium/Sennosides [Senna Plus] 1 tab PO BID PRN Ondansetron [Zofran ODT] 4 mg PO Q6H PRN Antiembolic Hose [OM.PC] Per Unit Routine CHF Questionnaire [COMM] Routine 12/19/16 Dinner 2 Gram Sodium Diet [DIET] 12/20/16 04:00 Bumetanide [Bumex] 2 mg IVPUSH Q8H 12/20/16 07:30 Pantoprazole [ProTONIX] 40 mg PO ACBREAKFAST 12/20/16 10:46 Transfer Patient (Change bed) [ADT] Routine 12/20/16 10:48 Bumetanide [Bumex] 1 mg IVPUSH ONETIME ONE 12/20/16 11:00 Bumetanide Drip 10 MG in D5W @ 0.5 MG/HR(100ml) Bumetanide [Bumex] 10 mg Dextrose 5% in Water 60 ml IV TITRATE 12/21/16 05:00 BASIC METABOLIC PANEL,BMP [CHEM] Timed CBC W/O DIFF,HEMOGRAM [HEME] Timed (1) INR,PT,PROTHROMBIN TIME [COAG] Timed 12/21/16 05:11 BASIC METABOLIC PANEL,BMP [CHEM] AM CBC W/O DIFF,HEMOGRAM [HEME] AM INR,PT,PROTHROMBIN TIME [COAG] AM 12/22/16 05:11 BASIC METABOLIC PANEL,BMP [CHEM] AM CBC W/O DIFF,HEMOGRAM [HEME] AM INR,PT,PROTHROMBIN TIME [COAG] AM 12/22/16 07:00 Echo Comp wo Cont [US] Routine - Plan Plan:: Assessment and plan - Acute systolic congestive heart failure, NYHA class III - poor response to IV push diuretics overnight with minimal urine output. Blood pressures have been on the low side. Kidney function essentially stable since yesterday but very poor. Clinically she feels a little bit better. -Insert Harper catheter for strict intake and output monitoring -Bumetanide infusion -Cardiac monitoring -Hold beta jim, AMARJIT inhibitor with hypotension -Supplemental oxygen -Repeat echocardiogram when available -Strict intake and output monitoring -Consider transfer to higher level of care for ultrafiltration if diuretics unsuccessful Acute on chronic kidney injury - essentially stable since admission but significantly reduced. Urine output has not been very good. Electrolytes are acceptable and no acidosis. -Diuresis as above -Labs in the morning Chronic atrial fibrillation - acceptable rate control at this time. She is chronically anticoagulated and INR supratherapeutic. -Hold beta jim as above -Hold warfarin -2.5 mg of vitamin K today -INR goal is 2.5-3.5 with a mechanical aortic valve Anemia of chronic disease - Hemoglobin is safe level at this time. No indication for transfusion. Plan to monitor labs daily. Maintenance issues - - DVT prophylaxis - warfarin - GI prophylaxis - PPI - Nutrition - low sodium diet - Harper catheter - placed for strict intake and output monitoring, will be reassessed daily Disposition - anticipate discharge home after the hospital stay Ryne Jameson M.D.
[2016-12-20] MEDS ORDERED: Bumetanide 1 MG/4 ML MDV IVPUSH ONE (11:15)
[2016-12-20] MEDS: atorvaSTATin 20 MG Tab PO SCH (20:38)
[2016-12-20] MEDS ORDERED: Dextrose 5% in Water 250 ML ONE (22:07)
[2016-12-20] MEDS ORDERED: BUMETANIDE IV SCH ×2 (23:18)
[2016-12-20] MEDS ORDERED: DEXTROSE 5% IV SCH ×2 (23:18)
[2016-12-20] MEDS ORDERED: WATER IV SCH ×2 (23:18)
[2016-12-21] MEDS: Pantoprazole 40 MG Tab.CR PO SCH (08:08)
[2016-12-21] MEDS: Carvedilol 25 MG Tab PO SCH (09:18)
[2016-12-21 09:19] VITALS: BP 86/45
[2016-12-21] MEDS: Magnesium Oxide 400 MG Tab PO SCH (09:20)
[2016-12-21] MEDS: Spironolactone 25 MG Tab PO SCH (09:20)
[2016-12-21] MEDS: Aspirin 81 MG Tab.EC PO SCH (09:20)
--- NOTE | 2016-12-21 09:42 | PCM.DCSUM1 ---
Discharge Summary - Hospital Course Brief History: 81 -year-old female with systolic congestive heart failure complicated by valvular disease and stage IV chronic kidney disease who presented with shortness of breath and lower extremity edema that progressed over one week. She was admitted for management of decompensated heart failure and acute on chronic kidney failure. - Discharge Data Discharge Date: 12/21/16 Discharge Disposition: DC/Tfer to Merged With [facility] 02 Condition: Serious - Discharge Diagnosis/Problem(s) (1) Acute systolic CHF (congestive heart failure), NYHA class 3 SNOMED Code(s): 603853719, 553234215, 254601895 ICD Code: I50.21 - ACUTE SYSTOLIC (CONGESTIVE) HEART FAILURE Status: Acute Current Visit: Yes (2) Acute on chronic renal failure SNOMED Code(s): 475662541 ICD Code: N17.9 - ACUTE KIDNEY FAILURE, UNSPECIFIED; N18.9 - CHRONIC KIDNEY DISEASE, UNSPECIFIED Status: Acute Current Visit: Yes Qualifiers: Acute renal failure type: unspecified Chronic kidney disease stage: stage 4 (severe) Qualified Code(s): N17.9 - Acute kidney failure, unspecified; N18.4 - Chronic kidney disease, stage 4 (severe) (3) Anemia due to chronic kidney disease SNOMED Code(s): 342155636 ICD Code: N18.9 - CHRONIC KIDNEY DISEASE, UNSPECIFIED; D63.1 - ANEMIA IN CHRONIC KIDNEY DISEASE Status: Chronic Current Visit: Yes (4) Aortic prosthetic valve regurgitation SNOMED Code(s): 394063646, 467148343 ICD Code: T82.897A - OTH COMPLICATION OF CARDIAC PROSTH DEV/GRFT, INIT Status: Chronic Current Visit: Yes Qualifiers: Encounter type: sequela Qualified Code(s): T82.897S - Other specified complication of cardiac prosthetic devices, implants and grafts, sequela (5) Mitral regurgitation SNOMED Code(s): 99431857 ICD Code: I34.0 - NONRHEUMATIC MITRAL (VALVE) INSUFFICIENCY Status: Chronic Current Visit: Yes (6) Supratherapeutic INR SNOMED Code(s): 538551282, 233711788 ICD Code: R79.1 - ABNORMAL COAGULATION PROFILE Status: Acute Current Visit: Yes - Patient Summary/Data Hospital Course: Gail presented to the emergency room with one week of progressive shortness of breath, increasing abdominal distention and lower extremity edema. Workup in the emergency room was suggestive of acute decompensated congestive heart failure as well as acute on chronic kidney disease. Baseline cardiac function reveals reduced systolic function with an ejection fraction of 25-30%. She has moderate perivalvular regurgitation around her prosthetic aortic valve as well as severe mitral and tricuspid regurgitation. Baseline kidney function reveals a GFR around 20. GFR at the time of admission was 10 with a creatinine of 3.8. BNP was elevated at nearly 16,000 and her chest x-ray revealed cephalization and small effusions. Physical examination was consistent with congestive heart failure with anasarca and significant jugular venous distention. She was admitted to the floor with cardiac monitoring. I utilized increasing doses of bumetanide in an attempt to diuresis the patient. Her blood pressures were on the low side and we did end up holding her carvedilol and her lisinopril. Overnight following admission we did not have much luck with diuresis despite increasing doses of bumetanide. The morning after admission symptomatically she felt slightly better but continued to have hypoxia and impressive evidence for congestive heart failure. At this point I transferred her down to the intensive care unit and started in a bumetanide infusion. We gave a 2 mg bolus prior to starting the infusion and then titrated to drip up to 2 mg per hour. Despite this titration we continued to have difficulty and maintained a urine output level of only 20-30 mL per hour. Hemodynamically she has remained borderline hypotensive. Heart rate has been acceptable. Her kidney function has tolerated the trials of bumetanide and has remained stable but has not improved. Potassium level has now risen to 5. This point and hesitant to try large doses of diuretics. Given her complicated cardiac picture as well as her severely decreased renal function I think she would benefit from transfer to a higher level of care and evaluation by operations program manager and manager financial reporting. She may end up needing dialysis if diuresis is unable to be achieved using medications and IV infusions. Spoke with the hospitalist at [facility] and transfer of her care was accepted. She will likely be admitted to the intensive care unit and will also have managed services sales consultant evaluation. At this point I think the benefits of transfer out weight the risks and she will be transported by ambulance for further evaluation. Also encountered during the hospital stay was a supratherapeutic INR. With her prosthetic aortic valve her initial INR value was only mildly elevated at 4.4. We held her Coumadin on the day of admission but unfortunately let the second day her INR has risen to greater than 6. I gave her a very small dose of oral vitamin K at 2.5 mg. on the day of discharge her INR has decreased down to 1.8. Given the potential need for dialysis catheter to be inserted I will hold off on any sort of additional anticoagulation until a definite plan can be determined when she arrives in [place]. Medications on hold - -Carvedilol 25 mg twice a day (last dose the morning of admission) -Lisinopril 5 mg once a day (last dose the morning of admission) - Patient Instructions Diet: NPO Activity: Bedrest Other/Special Instructions: 1. You were in the hospital for management of acute systolic congestive heart failure complicated by valvular disease and acute on chronic kidney disease. We have been unable to achieve adequate diuresis using IV medications and IV infusions. I recommend transfer to a higher level of care for managed services sales consultant evaluation and possibly ultrafiltration/dialysis. Your care has been accepted at [facility] in [facility]. You will be transferred there by ambulance for further treatment. - Discharge Plan Home Medications: Home Meds Acetaminophen 650 mg PO Q6H PRN 06/28/14 [History] Aspirin [Halfprin] 81 mg PO DAILY 06/28/14 [History] Bumetanide [Bumex] 1 mg PO DAILY 06/28/14 [History] Calcium Carbonate/Vitamin D3 [Calcium Carbonate/Vitamin D 1250 MG-200 Unit] 1 tab PO BID 06/28/14 [History] Carvedilol [Coreg] 25 mg PO BID 06/28/14 [History] Lisinopril 5 mg PO DAILY 06/28/14 [History] Magnesium Oxide 400 mg PO DAILY 06/28/14 [History] Nitroglycerin [Nitrostat] 0.4 mg SL ASDIRECTED PRN 06/28/14 [History] Omeprazole [Prilosec] 20 mg PO DAILY 06/28/14 [History] Spironolactone [Aldactone] 25 mg PO DAILY 06/28/14 [History] Warfarin [Coumadin] 2 mg PO MOTUTHFR 06/28/14 [History] Warfarin [Coumadin] 3 mg PO ASDIRECTED 06/28/14 [History] atorvaSTATin [Lipitor] 80 mg PO BEDTIME 06/28/14 [History] Patient Handouts: Heart Failure Referrals: Desmond Smith MD [Primary Care Provider] - (f/u after your stay in [place]) - Discharge Summary/Plan Comment DC Time >30 min.: Yes (45 - transfer to acute hospital) - Patient Data Vitals - Most Recent: Last Vital Signs Temp 37.3 C 12/21/16 07:24 Pulse 78 12/21/16 09:18 Resp 18 12/21/16 07:24 BP 86/45 L 12/21/16 09:18 Pulse Ox 92 L 12/21/16 07:24 Weight - Most Recent: 80.3 kg I&O - Last 24 hours: Intake & Output 12/20/16 12/21/16 12/21/16 22:59 06:59 14:59 Intake Total 200 350 120 Output Total 180 180 95 Balance 20 170 25 Lab Results - Last 24 hrs: Laboratory Results - last 24 hr 12/21/16 12/21/16 12/21/16 Range/Units 05:30 05:30 05:30 WBC 5.4 (4.5-11.0) K/uL RBC 3.85 (3.30-5.50) M/uL Hgb 9.1 L (12.0-15.0) g/dL Hct 29.5 L (36.0-48.0) % MCV 77 L (80-98) fL MCH 24 L (27-31) pg MCHC 31 L (32-36) % Plt Count 106 L (150-400) K/uL PT 19.7 H (9.5-12.0) sec INR 1.80 H D (0.80-1.20) Sodium 132 L (140-148) mmol/L Potassium 5.0 (3.6-5.2) mmol/L Chloride 97 L (100-108) mmol/L Carbon Dioxide 27 (21-32) mmol/L Anion Gap 13.0 (5.0-14.0) mmol/L BUN 60 H (7-18) mg/dL Creatinine 3.8 H* (0.6-1.0) mg/dL Est Cr Clr Drug Dosing 9.49 mL/min Estimated GFR (MDRD) 11 L (>60) Glucose 96 (74-106) mg/dL Calcium 8.1 L (8.5-10.1) mg/dL Med Orders - Current: Current Medications Acetaminophen (Tylenol) 650 mg PO Q6H PRN PRN Reason: Pain/Fever Last Admin: 12/20/16 23:24 Dose: 650 mg Hydrocodone Bitart/Acetaminophen ([place] 325-5 Mg) 1 tab PO Q4H PRN PRN Reason: Pain (moderate 4-6) Last Admin: 12/21/16 01:12 Dose: 1 tab Aspirin (Halfprin) 81 mg PO DAILY [facility] Last Admin: 12/21/16 09:20 Dose: 81 mg Atorvastatin Calcium (Lipitor) 80 mg PO BEDTIME [facility] Last Admin: 12/20/16 20:38 Dose: 80 mg Carvedilol (Coreg) 25 mg PO BID [facility] Last Admin: 12/21/16 09:18 Dose: Not Given Bumetanide 10 mg/ Sodium (Chloride) 100 mls @ 5 mls/hr IV TITRATE DULCE MARIA; 0.5 MG/ HR PRN Reason: Protocol Lisinopril (Prinivil) 5 mg PO DAILY@2100 [facility] Last Admin: 12/19/16 21:42 Dose: Not Given Magnesium Oxide (Magnesium Oxide) 400 mg PO DAILY [facility] Last Admin: 12/21/16 09:20 Dose: 400 mg Ondansetron HCl (Zofran Odt) 4 mg PO Q6H PRN PRN Reason: Nausea able to take PO Pantoprazole Sodium (Protonix) 40 mg PO ACBREAKFAST [facility] Last Admin: 12/21/16 08:08 Dose: 40 mg Senna/Docusate Sodium (Senna Plus) 1 tab PO BID PRN PRN Reason: Constipation Spironolactone (Aldactone) 25 mg PO DAILY [facility] Last Admin: 12/21/16 09:20 Dose: 25 mg Discontinued Medications Bumetanide (Bumex) 2 mg IVPUSH ONETIME ONE Stop: 12/19/16 15:21 Last Admin: 12/19/16 18:32 Dose: 2 mg Bumetanide (Bumex) 2 mg IVPUSH Q8H [facility] Bumetanide (Bumex) Confirm Administered Dose 2 mg .ROUTE .STK-MED ONE Stop: 12/19/16 18:31 Last Admin: 12/19/16 18:40 Dose: Not Given Bumetanide (Bumex) 2 mg IVPUSH Q8H [facility] Last Admin: 12/20/16 11:33 Dose: 2 mg Bumetanide (Bumex) 4 mg IVPUSH ONETIME STA Stop: 12/20/16 03:38 Last Admin: 12/20/16 03:56 Dose: 4 mg Bumetanide (Bumex) 1 mg IVPUSH ONETIME ONE Stop: 12/20/16 11:16 Bumetanide 10 mg/ Dextrose/ (Water) 100 mls @ 5 mls/hr IV TITRATE DULCE MARIA; 0.5 MG/ HR PRN Reason: Protocol Stop: 12/23/16 10:47 Last Titration: 12/20/16 18:58 Dose: 1.5 mg/hr, 15 mls/hr Dextrose/Water (Dextrose 5% In Water) Confirm Administered Dose 250 mls @ as directed .ROUTE .STK-MED ONE Stop: 12/20/16 22:08 Last Admin: 12/20/16 23:21 Dose: Not Given Bumetanide 10 mg/ Dextrose/ (Water) 80 mls @ 4 mls/hr IV TITRATE DULCE MARIA; 0.5 MG/HR PRN Reason: Protocol Bumetanide 10 mg/ Dextrose/ (Water) 100 mls @ 5 mls/hr IV TITRATE DULCE MARIA; 0.5 MG/ HR PRN Reason: Protocol Last Titration: 12/21/16 01:09 Dose: 0.25 mg/hr, 2.5 mls/hr Phytonadione (Aquamephyton) 2.5 mg PO ONETIME ONE Stop: 12/20/16 06:18 Last Admin: 12/20/16 06:42 Dose: 2.5 mg *Q Meaningful Use (DIS) - VTE *Q VTE Criteria *Q: VTE Pharmacological Contraindications *Q: High INR Value - Stroke *Q Stroke Criteria *Q: - AMI *Q AMI Criteria *Q:
== END 2016-12-21 10:30 | DRG 292 ==
LOC: JP.ED 11:56 → JP.MS 15:10 → JP.ICU 12-20 12:00
PROVIDERS: ADMIT Internal Medicine; ATTEND Internal Medicine
DX: I50.21 Acute systolic (congestive) heart failure (principal); R18.8 Other ascites; N17.9 Acute kidney failure, unspecified; N18.4 Chronic kidney disease, stage 4 (severe); E11.9 Type 2 diabetes mellitus without complications; Z99.81 Dependence on supplemental oxygen; Z87.891 Personal history of nicotine dependence; D63.1 Anemia in chronic kidney disease; I48.2 Chronic atrial fibrillation; Z79.01 Long term (current) use of anticoagulants; R06.02 Shortness of breath; R60.9 Edema, unspecified; R14.0 Abdominal distension (gaseous); R09.02 Hypoxemia; I34.0 Nonrheumatic mitral (valve) insufficiency; I36.1 Nonrheumatic tricuspid (valve) insufficiency; R79.1 Abnormal coagulation profile; M19.90 Unspecified osteoarthritis, unspecified site; R32 Unspecified urinary incontinence; Z88.1 Allergy status to other antibiotic agents; T82.897S Other specified complication of cardiac prosthetic devices, implants and grafts, sequela; Z79.82 Long term (current) use of aspirin
CPT/HCPCS: 36415; 36600; 71010; 71010-26; 74176; 74176-26; 80048; 80053; 81001; 82803; 83735; 83880; 85025; 85027; 85610; 86140; 93005; 93010; 96374; 99285; 99285-25; A9270-GY; J7060; S0171